=== PATIENT | male | born 1945 ===

== ENCOUNTER 2025-03-09 08:00 | Day surgery (SDC) | payer OTHER ==
[2025-03-09] MEDS ORDERED: MIDAZOLAM HCL 2 MG/2 ML VIAL IV ONE (16:45)
[2025-03-09] MEDS ORDERED: fentaNYL CITRATE 50 MCG/ML AMPUL IV PUSH ONE (16:45)
== END 2025-03-09 18:10 | disposition home or self-care (01) ==
LOC: AMB-ENDOS 08:00
PROVIDERS: ATTEND Surgery
DX: K62.4 Stenosis of anus and rectum (principal); Z93.2 Ileostomy status; Z85.048 Personal history of other malignant neoplasm of rectum, rectosigmoid junction, and anus